=== PATIENT | male | born 1980 | race American Indian/Alaskan Native ===

== ENCOUNTER 2017-10-23 00:42 | Emergency (ER) | payer SELFPAY ==
[2017-10-23 01:07] VITALS: BP 177/109
== END 2017-10-23 01:30 | disposition left against medical advice (07) ==
LOC: ED 00:42
DX: R09.81 Nasal congestion (principal); Z53.21 Procedure and treatment not carried out due to patient leaving prior to being seen by health care provider

== ENCOUNTER 2019-03-09 01:58 | Emergency (ER) | payer SELFPAY ==
[2019-03-09 02:09] VITALS: BP 180/102
[2019-03-09 02:53] LABS: Bilirubin,Urine NEG (Negative); Blood,Urine MOD (Negative); Color,Urine Yellow (Yellow); Mucus,Urine FEW /HPF; Urobilinogen,Urine < 2.0 mg/dL (<2.0)
== END 2019-03-09 04:45 | disposition left against medical advice (07) ==
LOC: ED 01:58
DX: R35.0 Frequency of micturition (principal); Z53.21 Procedure and treatment not carried out due to patient leaving prior to being seen by health care provider
CPT/HCPCS: 81001

== ENCOUNTER 2019-09-09 09:45 | Emergency (ER) | payer SELFPAY ==
[2019-09-09 09:55] VITALS: BP 194/120
[2019-09-09] MEDS ORDERED: IBUPROFEN 800 MG TAB PO ONE (11:52)
[2019-09-09] MEDS ORDERED: cloNIDine 0.2 MG TAB PO ONE (11:54)
--- NOTE | 2019-09-09 12:10 | Emergency Department Report ---
ED Laceration HPI - HPI Chief Complaint: Wound/Laceration Stated Complaint: TOE CUT Time Seen by Provider: 09/09/19 11:26 Tetanus Status: Unknown Laceration Symptoms: Yes Pain, No Foreign Body Sensation, No Numbness, No W eakness Other History: This is a 38-year-old male presents the ED complaining of pain and laceration to the left second toe after accidentally stepping on a piece of broken meter earlier today. Patient states he came to the ER right after the incident happened. Patient states he is unsure of his tetanus but refusing to get a tetanus booster today. He denies fever/chills/nausea vomiting or any other symptoms ED Review of Systems ROS: Stated complaint: TOE CUT Other details as noted in HPI Comment: All other systems reviewed and negative ED Past Medical Hx - Past Medical History Previous Medical History?: Yes Hx Hypertension: Yes - Surgical History Past Surgical History?: No - Social History Smoking Status: Current Every Day Smoker Substance Use Type: Alcohol, Marijuana - Medications Home Medications: Home Medications Medication Instructions Recorded Confirmed Last Taken Type Ciprofloxacin HCl [Cipro] 500 mg PO Q12H #14 tab 10/14/13 Unknown Rx HYDROcodone/APAP 10-325 [[place] 1 each PO Q6HR PRN #20 tablet 10/14/13 Unknown Rx 10-325 mg TAB] Prednisone [Prednisone 10 mg 10 mg PO .TAPER #1 tab.ds.pk 10/14/13 Unknown Rx (6-Day Pack, 21 Tabs)] hydroCHLOROthiazide 25 mg PO QDAY 10/14/13 10/14/13 10/13/13 17:15 History [Hydrochlorothiazide] amLODIPine 10 mg PO DAILY #40 tab 09/09/19 Unknown Rx cephALEXin [Keflex] 500 mg PO Q12HR #10 cap 09/09/19 Unknown Rx Laceration Physical Exam - Exam General: Vital signs noted. No distress. Alert and acting appropriately. Wound Length (cm): 1 Laceration Location: Lower Extremity Laceration Exam: Yes Normal Distal CMS, No Foreign Body, No Exposed Tendon, Vessel, or Nerve, No Tendon Injury ED Course Vital Signs 09/09/19 09:46 Temperature 97.9 F Pulse Rate 113 H Respiratory 18 Rate Blood Pressure 194/120 O2 Sat by Pulse 99 Oximetry - Laceration /Wound Repair Left Posterior Toe Wound Location: lower extremity Wound Length (cm): 1 Wound's Depth, Shape: superficial, flap Wound Explored: no foreign body removed Irrigated w/ Saline (ccs): 200 Betadine Prep?: Yes Volume Anesthetic (ccs): 0 Wound Repaired With: Steri-strips, Dermabond Number of Sutures: 0 Layer Closure?: No Sterile Dressing Applied?: Yes ED Medical Decision Making - Medical Decision Making This 38-year-old male with a past medical history of hypertension not controlled with medication presents to ED for suture repair. Wound was flushed and irrigated for any debris, none found. Laceration was approximated with Dermabond and Steri-Strips without any problem. See procedure note. Patient did decline the tetanus booster stating that last time he got a shot he was sick and he refused to give a tetanus booster in the ED today. Patient did note that he was taking hydrochlorothiazide sometime ago for the pretension that was prescribed by her primary care doctor. Patient states that he has not followed up in a while and stopped taking the hydrochlorothiazide due to some of the symptoms he was having. We discussed with patient that it is important to follow-up and have his blood pressure under control. Patient had no symptoms in the ED today. Patient given clonidine to reduce blood pressure in the ED. Amlodipine prescription given to patient with follow-up referral as soon as possible. Critical care attestation.: If time is entered above; I have spent that time in minutes in the direct care of this critically ill patient, excluding procedure time. ED Disposition Clinical Impression: Laceration of second toe, left, Uncontrolled hypertension Disposition: DC- TO HOME OR SELFCARE Is pt being admited?: No Does the pt Need Aspirin: No Condition: Stable Instructions: Laceration (ED), Hypertension (ED), Absorbable Suture Care (ED) Additional Instructions: Make sure to follow up with the primary care physician as discussed. Take all your medications as you've been prescribed. If you have any worsening symptoms or develop new symptoms please return to ED immediately. Prescriptions: amLODIPine 10 mg PO DAILY #40 tab cephALEXin [Keflex] 500 mg PO Q12HR #10 cap Referrals: PRIMARY CARE, [Primary Care Provider] - 3-5 Days [facility] [Provider Group] - 3-5 Days [facility] [Outside] - 3-5 Days [facility] [Outside] - 3-5 Days Forms: Work/School Release Form(ED) Time of Disposition: 12:12
== END 2019-09-09 12:36 | disposition home or self-care (01) ==
LOC: ED 09:45
DX: S91.115A Laceration without foreign body of left lesser toe(s) without damage to nail, initial encounter (principal); I10 Essential (primary) hypertension; F17.200 Nicotine dependence, unspecified, uncomplicated; F12.10 Cannabis abuse, uncomplicated; Z79.2 Long term (current) use of antibiotics; Z79.899 Other long term (current) drug therapy; W22.8XXA Striking against or struck by other objects, initial encounter; Y93.89 Activity, other specified; Y92.89 Other specified places as the place of occurrence of the external cause; Y99.8 Other external cause status

== ENCOUNTER 2019-09-11 00:42 | Emergency (ER) | payer SELFPAY ==
[2019-09-11] MEDS ORDERED: traMADol 50 MG TAB PO ONE (02:03)
--- NOTE | 2019-09-11 02:08 | Emergency Department Report ---
- General Chief Complaint: Extremity Injury, Lower Stated Complaint: LEFT FOOT PAIN Time Seen by Provider: 09/11/19 02:02 Source: patient Mode of arrival: Ambulatory Limitations: No Limitations - History of Present Illness Initial Comments: pt is a 38 y/o aam who presents for wound check s/p left middle toe laceration repair. states he is concerned for bleeding, however he has been walking on foot all day. pt denies fever or chills n/v, no malaise , no purulent drainage , no symptoms of infection, states scant blood to tissue intermittently. Onset/Timin Location: other (left middle 2nd toe ) Extremity Location: Left: Foot Place: home Patient Tetanus UTD: Yes Associated Symptoms: pain, other (bleeding) - Related Data Home Medications Medication Instructions Recorded Confirmed Last Taken hydroCHLOROthiazide 25 mg PO QDAY 10/14/13 10/14/13 10/13/13 17:15 [Hydrochlorothiazide] Previous Rx's Medication Instructions Recorded Last Taken Type Ciprofloxacin HCl [Cipro] 500 mg PO Q12H #14 tab 10/14/13 Unknown Rx HYDROcodone/APAP 10-325 [[place] 1 each PO Q6HR PRN #20 tablet 10/14/13 Unknown Rx 10-325 mg TAB] Prednisone [Prednisone 10 mg 10 mg PO .TAPER #1 tab.ds.pk 10/14/13 Unknown Rx (6-Day Pack, 21 Tabs)] amLODIPine 10 mg PO DAILY #40 tab 09/09/19 Unknown Rx cephALEXin [Keflex] 500 mg PO Q12HR #10 cap 09/09/19 Unknown Rx Ibuprofen [Motrin 800 MG tab] 800 mg PO Q8HR PRN #30 tablet 09/11/19 Unknown Rx cephALEXin [Keflex] 500 mg PO Q8HR 7 Days #21 cap 09/11/19 Unknown Rx Allergies Allergy/AdvReac Type Severity Reaction Status Date / Time No Known Allergies Allergy Unverified 10/14/13 07:22 ED Review of Systems ROS: Stated complaint: LEFT FOOT PAIN Other details as noted in HPI Constitutional: denies: chills, fever Eyes: denies: eye pain, eye discharge, vision change ENT: denies: ear pain, throat pain Respiratory: denies: cough, shortness of breath, wheezing Cardiovascular: denies: chest pain, palpitations Endocrine: no symptoms reported Gastrointestinal: denies: abdominal pain, nausea, diarrhea Genitourinary: denies: urgency, dysuria Musculoskeletal: denies: back pain, joint swelling, arthralgia Skin: denies: rash, lesions Neurological: denies: headache, weakness, paresthesias Psychiatric: denies: anxiety, depression Hematological/Lymphatic: denies: easy bleeding, easy bruising ED Past Medical Hx - Past Medical History Previous Medical History?: Yes Hx Hypertension: Yes - Surgical History Past Surgical History?: No - Social History Smoking Status: Current Every Day Smoker Substance Use Type: Marijuana - Medications Home Medications: Home Medications Medication Instructions Recorded Confirmed Last Taken Type Ciprofloxacin HCl [Cipro] 500 mg PO Q12H #14 tab 10/14/13 Unknown Rx HYDROcodone/APAP 10-325 [[place] 1 each PO Q6HR PRN #20 tablet 10/14/13 Unknown Rx 10-325 mg TAB] Prednisone [Prednisone 10 mg 10 mg PO .TAPER #1 tab.ds.pk 10/14/13 Unknown Rx (6-Day Pack, 21 Tabs)] hydroCHLOROthiazide 25 mg PO QDAY 10/14/13 10/14/13 10/13/13 17:15 History [Hydrochlorothiazide] amLODIPine 10 mg PO DAILY #40 tab 09/09/19 Unknown Rx cephALEXin [Keflex] 500 mg PO Q12HR #10 cap 09/09/19 Unknown Rx Ibuprofen [Motrin 800 MG tab] 800 mg PO Q8HR PRN #30 tablet 09/11/19 Unknown Rx cephALEXin [Keflex] 500 mg PO Q8HR 7 Days #21 cap 09/11/19 Unknown Rx ED Physical Exam - General Limitations: No Limitations General appearance: alert, in no apparent distress - Head Head exam: Present: atraumatic, normocephalic - Eye Eye exam: Present: normal appearance, PERRL, EOMI Pupils: Present: normal accommodation - ENT ENT exam: Present: normal exam - Neck Neck exam: Present: normal inspection, tenderness, full ROM - Respiratory Respiratory exam: Present: normal lung sounds bilaterally. Absent: respiratory distress - Cardiovascular Cardiovascular Exam: Present: regular rate, normal rhythm. Absent: systolic murmur, diastolic murmur, rubs, gallop - GI/Abdominal GI/Abdominal exam: Present: soft, normal bowel sounds - Rectal Rectal exam: Present: deferred - Extremities Exam Extremities exam: Present: normal inspection, full ROM, tenderness (left 2nd toe ), normal capillary refill - Expanded Lower Extremity Exam Left Foot/Toe exam: Present: tenderness (left middle toe ), laceration (no symptoms of infection ). Absent: swelling, abrasion, ecchymosis, deformity, crepidus, dislocation, erythema, amputation, puncture wound, foreign body, calcaneal tenderness, tenderness at base of 5th metatarsal, nail avulsion, subungual hematoma Neuro vascular tendon exam: Absent: pulse deficit, motor deficit, sensory deficit, tendon deficit Gait: Positive: observed and normal - Back Exam Back exam: Present: normal inspection - Neurological Exam Neurological exam: Present: alert, oriented X3, CN II-XII intact, normal gait - Psychiatric Psychiatric exam: Present: normal affect, normal mood - Skin Skin exam: Present: warm, dry, intact, normal color. Absent: rash ED Course Vital Signs 09/11/19 00:47 Temperature 99.6 F Pulse Rate 101 H Respiratory 18 Rate Blood Pressure 163/97 O2 Sat by Pulse 94 Oximetry ED Medical Decision Making - Medical Decision Making Visit for wound check , no active bleeding steristrips intact, edges well approximated. pt will continue wound care as previously prescribed, keflex , followupo with pcp in 2-3 days. given post op shoe for ambulation. pt dc'd to home in stable condition at this time. Critical care attestation.: If time is entered above; I have spent that time in minutes in the direct care of this critically ill patient, excluding procedure time. ED Disposition Clinical Impression: Visit for wound check Disposition: DC-01 TO HOME OR SELFCARE Is pt being admited?: No Does the pt Need Aspirin: No Condition: Stable Instructions: Laceration (ED) Prescriptions: cephALEXin [Keflex] 500 mg PO Q8HR 7 Days #21 cap Ibuprofen [Motrin 800 MG tab] 800 mg PO Q8HR PRN #30 tablet PRN Reason: Pain , Severe (7-10) Referrals: [facility] [Provider Group] - 3-5 Days Forms: Work/School Release Form(ED) Time of Disposition: 02:18
[2019-09-11 02:30] VITALS: BP 164/99
== END 2019-09-11 02:30 | disposition home or self-care (01) ==
LOC: ED 00:42
DX: S91.119D Laceration without foreign body of unspecified toe without damage to nail, subsequent encounter (principal); M25.572 Pain in left ankle and joints of left foot; I10 Essential (primary) hypertension; F12.90 Cannabis use, unspecified, uncomplicated; F17.200 Nicotine dependence, unspecified, uncomplicated; Z48.00 Encounter for change or removal of nonsurgical wound dressing; X58.XXXD Exposure to other specified factors, subsequent encounter
CPT/HCPCS: 99282

== ENCOUNTER 2019-09-11 17:36 | Emergency (ER) | payer SELFPAY ==
[2019-09-11 17:41] VITALS: BP 176/105
--- NOTE | 2019-09-11 18:30 | Emergency Department Report ---
Chief Complaint: Laceration/Recheck/Suture Stated Complaint: FOOT STILL BLEEDING Time Seen by Provider: 09/11/19 18:22 - HPI History of Present Illness: 38-year-old -[place] male presents back to the emergency room complaining of left foot middle toe bleeding. Patient was seen here earlier with a prescription for Keflex and pain medication. Patient states he has not been able to lemon picker his prescription as he does not have any money. Patient is concerned that it continues to bleed. - Exam Vital Signs: Vital Signs 09/11/19 17:40 Temperature 97.9 F Pulse Rate 82 Respiratory 20 Rate Blood Pressure 176/105 O2 Sat by Pulse 97 Oximetry Physical Exam: Alert and oriented with no acute distress Left second toe laceration mild bleeding tenderness to touch MSE screening note: Focused history and physical exam performed. Due to findings the following was ordered: 38-year-old -[place] male presents back to the emergency room compla ining of left foot middle toe bleeding. Patient was seen here earlier with a prescription for Keflex and pain medication. Patient states he has not been able to lemon picker his prescription as he does not have any money. Patient is concerned that it continues to bleed. Bandage changed by this provider. Reassurance that this wound will heal and stop bleeding. Discussed with patient do not pull off Steri-Strips as they are supposed to fall off when wound is healed. Patient verbalized understanding. ED Disposition for MSE Clinical Impression: Laceration of second toe, left, Uncontrolled hypertension Disposition: Z- MED SCREENING EXAM-LEFT Is pt being admited?: No Does the pt Need Aspirin: No Condition: Stable Instructions: Hypertension (ED) Additional Instructions: Please take medications as prescribed. Change bandage in the morning Place Steri-Strips and do not remove until they fall off. Follow-up with your primary care provider I have listed 1 below for your convenience. Referrals: CRISTIANE SANCHEZ MD [Staff Physician] - 3-5 Days [facility] [Provider Group] - 3-5 Days
== END 2019-09-11 18:55 | disposition left against medical advice (07) ==
LOC: ED 17:36
DX: S91.115A Laceration without foreign body of left lesser toe(s) without damage to nail, initial encounter (principal); I10 Essential (primary) hypertension; X58.XXXA Exposure to other specified factors, initial encounter; Y93.89 Activity, other specified; Y92.89 Other specified places as the place of occurrence of the external cause; Y99.8 Other external cause status

== ENCOUNTER 2021-03-24 06:18 | Emergency (ER) | payer OTHER ==
[2021-03-24 07:35] LABS: Basophils % (Auto) 0.5 % (0.0-1.8); Eosinophils # (Auto) 0.5 K/mm3 (0.0-0.4); Eosinophils % (Auto) 4.8 % (0.0-4.3); Hematocrit 48.9 % (35.5-45.6); Hemoglobin 16.7 gm/dl (11.8-15.2); Lymphocytes # (Auto) 1.9 K/mm3 (1.2-5.4); Lymphocytes % (Auto) 19.6 % (13.4-35.0); Mean Corpuscular HGB Conc 34 % (32-34); Mean Corpuscular Volume 91 fl (84-94); Monocytes # (Auto) 0.7 K/mm3 (0.0-0.8); Monocytes % (Auto) 7.1 % (0.0-7.3); Platelet Count 253 K/mm3 (140-440); Red Blood Count 5.37 M/mm3 (3.65-5.03); Red Cell Distribution Width 14.4 % (13.2-15.2)
[2021-03-24] MEDS ORDERED: hydrALAZINE 25 MG TAB PO ONE (07:37)
[2021-03-24] MEDS ORDERED: FAMOTIDINE 20 MG/2 ML INJ IV ONE (07:37)
[2021-03-24] MEDS ORDERED: ALUM-MAG HYDROXIDE-SIMETHICONE 200-200-20MG/5ML ORAL LIQD 30 ML PO ONE (07:37)
[2021-03-24] MEDS ORDERED: LIDOCAINE VISCOUS 2% 15 ML ORAL LIQD PO ONE (07:37)
[2021-03-24 08:00] LABS: Alanine Aminotransferase 28 units/L (7-56); Albumin 4.8 g/dL (3.9-5); BUN/Creatinine Ratio 13; Blood Urea Nitrogen 18 mg/dL (9-20); Calcium 9.3 mg/dL (8.4-10.2); Hemolysis Index 5
--- NOTE | 2021-03-24 08:40 | XRay Report ---
CHEST 2 VIEWS INDICATION / CLINICAL INFORMATION: chest pain. COMPARISON: None available. FINDINGS: SUPPORT DEVICES: None. HEART / MEDIASTINUM: No significant abnormality. LUNGS / PLEURA: No significant pulmonary or pleural abnormality. No pneumothorax. ADDITIONAL FINDINGS: No significant additional findings. IMPRESSION: 1. No acute findings. Signer Name: Maycol Jordan MD Signed: 03/24/2021 8:36 AM Workstation Name: [id number]
--- NOTE | 2021-03-24 09:42 | Emergency Department Report ---
ED General Adult HPI - General Chief complaint: Abdominal Pain Stated complaint: CHEST PAIN/STOMACH PAIN/SOB Time Seen by Provider: 03/24/21 07:17 Source: patient Mode of arrival: Ambulatory Limitations: No Limitations - History of Present Illness Initial comments: 40-year-old -Citizen Of [place] male patient presents with complaints of mid/epigastric pain radiating into his chest x2 days. Patient has past medical history of hypertension. He reports he stopped taking his losartan about 2 to 3 weeks ago due to it causing some erectile dysfunction. Patient has not followed up with his PCP since. He rates his current pain as a 9/10 in severity and d escribes it as a cramping type pain. Patient states the pain mainly occurs with deep inhalation. No nausea/vomiting or stool changes per patient. The pain began after eating a large meal that included fried foods. Patient states his pain does feel somewhat like heartburn. He has not tried any medications for his symptoms. No past medical history of heart disease, however he does admit to heart disease in his father. Patient denies any leg pain/swelling, recent long travel, cough, hemoptysis, shortness of breath, or history of DVT/PE/cancer. - Related Data Home Medications Medication Instructions Recorded Confirmed Last Taken hydroCHLOROthiazide 25 mg PO QDAY 10/14/13 10/14/13 10/13/13 17:15 [Hydrochlorothiazide] Previous Rx's Medication Instructions Recorded Last Taken Type Ciprofloxacin HCl [Cipro] 500 mg PO Q12H #14 tab 10/14/13 Unknown Rx HYDROcodone/APAP 10-325 [[place] 1 each PO Q6HR PRN #20 tablet 10/14/13 Unknown Rx 10-325 mg TAB] Prednisone [Prednisone 10 mg 10 mg PO .TAPER #1 tab.ds.pk 10/14/13 Unknown Rx (6-Day Pack, 21 Tabs)] amLODIPine 10 mg PO DAILY #40 tab 09/09/19 Unknown Rx cephALEXin [Keflex] 500 mg PO Q12HR #10 cap 09/09/19 Unknown Rx Ibuprofen [Motrin 800 MG tab] 800 mg PO Q8HR PRN #30 tablet 09/11/19 Unknown Rx cephALEXin [Keflex] 500 mg PO Q8HR 7 Days #21 cap 09/11/19 Unknown Rx Allergies Allergy/AdvReac Type Severity Reaction Status Date / Time No Known Allergies Allergy Verified 09/11/19 17:37 ED Review of Systems ROS: Stated complaint: CHEST PAIN/STOMACH PAIN/SOB Other details as noted in HPI Constitutional: denies: chills, fever, malaise Respiratory: denies: cough, shortness of breath Cardiovascular: as per HPI. denies: palpitations, edema, syncope Gastrointestinal: abdominal pain. denies: nausea, vomiting, diarrhea, constipation, melena, hematochezia Genitourinary: denies: urgency, dysuria, frequency Skin: denies: lesions, change in color Neurological: denies: headache Hematological/Lymphatic: denies: swollen glands ED Past Medical Hx - Past Medical History Previous Medical History?: Yes Hx Hypertension: Yes - Surgical History Past Surgical History?: No - Social History Smoking Status: Never Smoker Substance Use Type: Marijuana - Medications Home Medications: Home Medications Medication Instructions Recorded Confirmed Last Taken Type Ciprofloxacin HCl [Cipro] 500 mg PO Q12H #14 tab 10/14/13 Unknown Rx HYDROcodone/APAP 10-325 [[place] 1 each PO Q6HR PRN #20 tablet 10/14/13 Unknown Rx 10-325 mg TAB] Prednisone [Prednisone 10 mg 10 mg PO .TAPER #1 tab.ds.pk 10/14/13 Unknown Rx (6-Day Pack, 21 Tabs)] hydroCHLOROthiazide 25 mg PO QDAY 10/14/13 10/14/13 10/13/13 17:15 History [Hydrochlorothiazide] amLODIPine 10 mg PO DAILY #40 tab 09/09/19 Unknown Rx cephALEXin [Keflex] 500 mg PO Q12HR #10 cap 09/09/19 Unknown Rx Ibuprofen [Motrin 800 MG tab] 800 mg PO Q8HR PRN #30 tablet 09/11/19 Unknown Rx cephALEXin [Keflex] 500 mg PO Q8HR 7 Days #21 cap 09/11/19 Unknown Rx ED Physical Exam - General Limitations: No Limitations General appearance: alert, in no apparent distress - Head Head exam: Present: atraumatic, normocephalic - Eye Eye exam: Present: normal appearance - Neck Neck exam: Present: normal inspection - Respiratory Respiratory exam: Present: normal lung sounds bilaterally. Absent: respiratory distress - Cardiovascular Cardiovascular Exam: Present: regular rate, normal rhythm - GI/Abdominal GI/Abdominal exam: Present: soft, normal bowel sounds. Absent: distended, tenderness, guarding, rebound, rigid - Back Exam Back exam: Present: full ROM - Neurological Exam Neurological exam: Present: alert, oriented X3 - Psychiatric Psychiatric exam: Present: normal affect, normal mood - Skin Skin exam: Present: warm, dry, intact, normal color. Absent: rash ED Course Vital Signs 03/24/21 03/24/21 06:30 14:47 Temperature 97.9 F Pulse Rate 102 H 91 H Respiratory 18 Rate Blood Pressure 204/134 171/101 O2 Sat by Pulse 96 97 Oximetry ED Medical Decision Making - Lab Data Result diagrams: 03/24/21 07:24 03/24/21 07:24 Lab Results 03/24/21 03/24/21 03/24/21 Range/Units 07:24 07:24 10:34 WBC 9.6 (4.5-11.0) K/mm3 RBC 5.37 H (3.65-5.03) M/mm3 Hgb 16.7 H (11.8-15.2) gm/dl Hct 48.9 H (35.5-45.6) % MCV 91 (84-94) fl MCH 31 (28-32) pg MCHC 34 (32-34) % RDW 14.4 (13.2-15.2) % Plt Count 253 (140-440) K/mm3 Lymph % (Auto) 19.6 (13.4-35.0) % [place] % (Auto) 7.1 (0.0-7.3) % Eos % (Auto) 4.8 H (0.0-4.3) % Baso % (Auto) 0.5 (0.0-1.8) % Lymph # (Auto) 1.9 (1.2-5.4) K/mm3 [place] # (Auto) 0.7 (0.0-0.8) K/mm3 Eos # (Auto) 0.5 H (0.0-0.4) K/mm3 Baso # (Auto) 0.0 (0.0-0.1) K/mm3 Seg Neutrophils % 68.0 (40.0-70.0) % Seg Neutrophils # 6.5 (1.8-7.7) K/mm3 D-Dimer 253.98 H (0-234) ng/mlDDU Sodium 140 (137-145) mmol/L Potassium 4.7 (3.6-5.0) mmol/L Chloride 102.3 (98-107) mmol/L Carbon Dioxide 25 (22-30) mmol/L Anion Gap 17 mmol/L BUN 18 (9-20) mg/dL Creatinine 1.4 H (0.8-1.3) mg/dL Estimated GFR > 60 ml/min BUN/Creatinine Ratio 13 % Glucose 107 H (75-100) mg/dL Calcium 9.3 (8.4-10.2) mg/dL Total Bilirubin 0.30 (0.1-1.2) mg/dL AST 22 (5-40) units/L ALT 28 (7-56) units/L Alkaline Phosphatase 85 (35-129) units/L Troponin T < 0.010 (0.00-0.029) ng/mL Total Protein 8.0 (6.3-8.2) g/dL Albumin 4.8 (3.9-5) g/dL Albumin/Globulin Ratio 1.5 % Lipase 23 (13-60) units/L - EKG Data EKG shows normal: sinus rhythm Rate: normal - EKG Data Interpretation: nonspecific ST-T wave yimi, LVH - Radiology Data Radiology results: report reviewed CHEST 2 VIEWS INDICATION / CLINICAL INFORMATION: chest pain. COMPARISON: None available. FINDINGS: SUPPORT DEVICES: None. HEART / MEDIASTINUM: No significant abnormality. LUNGS / PLEURA: No significant pulmonary or pleural abnormality. No pneumothorax. ADDITIONAL FINDINGS: No significant additional findings. IMPRESSION: 1. No acute findings. - Medical Decision Making 40-year-old -Citizen Of [place] male patient presents with complaints of mid/epigastric pain radiating into his chest x2 days. Patient has past medical history of hypertension. He reports he stopped taking his losartan about 2 to 3 weeks ago due to it causing some erectile dysfunction. Patient has not followed up with his PCP since. He rates his current pain as a 9/10 in severity and describes it as a cramping type pain. Patient states the pain mainly occurs with deep inhalation. No nausea/vomiting or stool changes per patient. The pain began after eating a large meal that included fried foods. Patient states his pain does feel somewhat like heartburn. He has not tried any medications for his symptoms. No past medical history of heart disease, however he does admit to heart disease in his father. Patient denies any leg pain/swelling, recent long travel, cough, hemoptysis, shortness of breath, or history of DVT/PE/cancer. No acute abnormalities noted on CBC or CMP. Initial troponin is normal. Heart score = 2. PERC score = 1. CTA chest is normal. EKG shows left ventricular hypertrophy and nonspecific T wave changes. Repeat EKG shows similar changes. Pain improved with with Pepcid, GI cocktail, and aspirin. Discussed patient with Dr. Samson who recommends repeat troponin level, however patient eloped prior to repeat labs and disposition Critical care attestation.: If time is entered above; I have spent that time in minutes in the direct care of this critically ill patient, excluding procedure time. ED Disposition Clinical Impression: Epigastric pain, Chest pain Disposition: LEFT AWOL/ELOPED Is pt being admited?: No Condition: Stable Instructions: Nonspecific Chest Pain, Adult Referrals: ALFREDO MACE,ESTELITA [Other] - 3-5 Days Heart Score - HEART Score History: Moderately suspicious EKG: Normal Age: < 45 Risk factors: 1-2 risk factors Troponin: < normal limit HEART Score: 2 - EKG Read Time Time EKG Completed: 10:00 EKG Read Time: 10:05 - Critical Actions Critical Actions: 0-3 pts:0.9-1.7%risk of adverse cardiac event.Candidate for discharge
[2021-03-24] MEDS ORDERED: DICYCLOMINE 20 MG TAB PO ONE (09:44)
[2021-03-24] MEDS ORDERED: ASPIRIN 81 MG TAB CHEW PO ONE (10:29)
--- NOTE | 2021-03-24 13:59 | Cat Scan Report ---
CTA CHEST WITH IV CONTRAST INDICATION: chest pain, + dimer OMNI 350 100 ML. TECHNIQUE: Axial CT images were obtained through the chest after injection of 100 cc Omni 350 IV contrast. 3 sofia ne MIP reconstructions were produced. All CT scans at this location are performed using CT dose reduc tion for ALARA by means of automated exposure control. COMPARISON: None available. FINDINGS: Limited by respiratory motion artifact. PULMONARY ARTERIES: No pulmonary emboli. THORACIC AORTA: No acute abnormality. HEART: Normal. CORONARY ARTERIES: No significant calcification. PLEURA: No pleural effusion. No pneumothorax. LYMPH NODES: No significant adenopathy. LUNGS: No acute air space or interstitial disease. ADDITIONAL FINDINGS: None. UPPER ABDOMEN: No acute findings. SKELETAL STRUCTURES: No significant osseous abnormality. IMPRESSION: 1. No CT evidence for pulmonary embolism. 2. No acute findings. Signer Name: Maycol Jordan MD Signed: 03/24/2021 1:54 PM Workstation Name: [id number]
--- NOTE | 2021-03-24 14:21 | Electrocardiograph Report ---
[facility] Test Date: 2021-03-24 Test Time: 09:25:06 Pat Name: JAILYN NICKERSON Department: Room: Gender: M Admissions Clerk: IAN : 1980 Requested By: YAIR VICENTE Order Number: [id number] Reading MD: Jaky Stevens Measurements Intervals Divide Rate: 87 P: 54 WV: 145 QRS: 37 QRSD: 82 T: 56 QT: 350 QTc: 422 Interpretive Statements Sinus rhythm Probable left atrial enlargement Left ventricular hypertrophy Nonspecific T wave changes No previous ECG available for comparison Electronically Signed On 03-24-2021 14:21:39 EDT by Jaky Stevens
[2021-03-24 14:51] VITALS: BP 171/101
--- NOTE | 2021-03-28 18:38 | Electrocardiograph Report ---
[facility] Test Date: 2021-03-24 Test Time: 14:55:58 Pat Name: JAILYN NICKERSON Department: Room: Gender: [facility] Worker: TANNER : 1980 Requested By: LYNDON QUINTERO Order Number: [id number] Reading MD: Jaky Stevens Measurements Intervals [place] Rate: 83 P: 80 IL: 141 QRS: 83 QRSD: 76 T: -49 QT: 350 QTc: 412 Interpretive Statements Sinus rhythm Probable LVH with secondary repol abnrm Anterior Q waves, possibly due to LVH Compared to ECG 03/24/2021 09:25:06 No significant change Electronically Signed On 03-28-2021 18:37:59 EDT by Jaky Stevens
== END 2021-03-24 15:29 | disposition left against medical advice (07) ==
LOC: ED 06:18
DX: R10.13 Epigastric pain (principal); R07.9 Chest pain, unspecified; I10 Essential (primary) hypertension; F12.90 Cannabis use, unspecified, uncomplicated
CPT/HCPCS: 36415; 71046; 71275; 80053; 83690; 84484; 85025; 85379; 93005; 96374; 99284; Q9967